=== PATIENT | male | born 1945 | race Caucasian/White ===

== ENCOUNTER 2016-11-06 08:41 | Emergency (ER) | payer MEDICARE ==
[2016-11-06 08:46] VITALS: BP 144/77; PULSE 73; RESP 20; TEMP 97.3
--- NOTE | 2016-11-06 09:21 | ED ---
Skin/Abscess/FB HPI - General Chief complaint: Skin/Abscess/Foreign Body Stated complaint: POSS SHINGLES Time Seen by Provider: 11/06/16 09:02 Source: patient, RN notes reviewed Mode of arrival: ambulatory Limitations: no limitations - History of Present Illness Initial comments: Patient is a 71-year-old male presents to the emergency room for evaluation of rash. Patient states he has shingles. Patient states she's had shingles before and this feels exactly the same. Patient states symptoms began about 3 weeks ago. Patient states he can't take the burning and the pain anymore. Patient has no fevers or chills. Patient denies chest pain or shortness of breath. Patient denies headache or dizziness. Patient denies using new detergents, body lotions. Patient denies coming in contact with any new plants or animals. Patient also states that he has had a chronic rash similar to this and is followed up with a shell press operator. 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 Patient states it has flared up within the past 3 weeks and that's why he thinks he has shingles. Patient states he's been placed on creams (unknown name ) with relief of symptoms. - Related Data Previous Rx's Medication Instructions Recorded Cephalexin [Keflex] 500 mg PO Q6HR 7 Days 11/06/16 Hydrocortisone 1% Lotion 1 applic TOPICAL TID 10 Days 11/06/16 Allergies Allergy/AdvReac Type Severity Reaction Status Date / Time No Known Allergies Allergy Verified 11/06/16 08:46 Review of Systems ROS Statement: Those systems with pertinent positive or pertinent negative responses have been documented in the HPI. ROS Other: All systems not noted in ROS Statement are negative. Past Medical History Past Medical History: Coronary Artery Disease (CAD) History of Any Multi-Drug Resistant Organisms: None Reported Past Surgical History: Heart Catheterization With Stent Past Psychological History: Depression Smoking Status: Current every day smoker Past Alcohol Use History: None Reported Past Drug Use History: None Reported General Exam - General Exam Comments Initial Comments: Sitting in exam room in no acute distress. Limitations: no limitations General appearance: alert, in no apparent distress Head exam: Present: atraumatic, normocephalic, normal inspection Eye exam: Present: normal appearance ENT exam: Present: normal exam Neck exam: Present: normal inspection Respiratory exam: Present: normal lung sounds bilaterally. Absent: respiratory distress Cardiovascular Exam: Present: regular rate, normal rhythm, normal heart sounds Extremities exam: Present: normal inspection Back exam: Present: normal inspection Neurological exam: Present: alert, oriented X3, CN II-XII intact, normal gait Psychiatric exam: Present: normal affect, normal mood Skin exam: Present: warm, dry, other (Multiple keratotic-appearing papules and crusted plaques over her chest and entire back) Course Vital Signs 11/06/16 08:44 Temperature 97.3 F L Pulse Rate 73 Respiratory 20 Rate Blood Pressure 144/77 O2 Sat by Pulse 98 Oximetry Medical Decision Making - Medical Decision Making Patient is a 71-year-old male presents emergency room for evaluation of rash. 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 Patient's rash does not appear to be shingles. Patient's rash is not one-sided. Patient's rash is all over center of chest and back. It appears that patient is having a flareup of Darier disease. Patient's had this for about 3 weeks. Patient also be placed on antibiotics for secondary infection from scratching. Advised patient to follow-up with his shell press operator on Tuesday. Patient states he understands everything that was discussed with him. Return parameters discussed. Case discussed with Dr. Knowles. Disposition Clinical Impression: Darier disease Disposition: HOME SELF-CARE Condition: Good Instructions: Acute Rash (ED) Additional Instructions: Take antibiotics as directed. Apply cream as directed. Please follow up with shell press operator on Tuesday. If any new symptom arises, symptoms worsen or fever develops, return to ER as soon as possible. Prescriptions: Cephalexin [Keflex] 500 mg PO Q6HR 7 Days Hydrocortisone 1% Lotion 1 applic TOPICAL TID 10 Days Referrals: Ayana Beverly MD [Primary Care Provider] - 1-2 days Darío Clayton MD [STAFF PHYSICIAN] - 1-2 days Time of Disposition: 09:42
[2016-11-06] MEDS ORDERED: methylPREDNISolone SOD SUCCI 125 MG/2 ML VIAL IM ONE (09:42)
== END 2016-11-06 10:06 | disposition home or self-care (01) ==
LOC: EC 08:41
DX: Q82.8 Other specified congenital malformations of skin (principal); I25.10 Atherosclerotic heart disease of native coronary artery without angina pectoris; Z95.5 Presence of coronary angioplasty implant and graft; F17.200 Nicotine dependence, unspecified, uncomplicated
CPT/HCPCS: 99282; 96372; J2930

== ENCOUNTER 2016-11-27 07:39 | Emergency (ER) | payer MEDICARE, OTHER ==
--- NOTE | 2016-11-27 08:18 | ED ---
General Adult HPI <Raman Montez - Last Filed: 11/27/16 10:21> - General Source: patient, RN notes reviewed Mode of arrival: ambulatory Limitations: no limitations <Nahid Alcantar - Last Filed: 11/27/16 10:52> - General Chief complaint: ENT Stated complaint: ear pain Time Seen by Provider: 11/27/16 07:59 - History of Present Illness Initial comments: 71-year-old male present emergency department to complaint left ear pain. Patient states it has been painful for last 1 week. Patient states that there is drainage, or from his left ear. Patient states that he has ruptured eardrum in which she was scheduled to have surgery last June but states that he had to cancel it and has been pushed back to December 07. Patient states that he recently noticed that it has become infected again and he is increase in pain. Patient denies any pain around his ear but states there is pain in his ear. Patient did admit to having surgery on his right mastoid in the past but never on the left. Patient denies headache, fever, neck stiffness. Patient does not take any current antibiotics are eardrops. (Nahid Alcantar) - Related Data Previous Rx's Medication Instructions Recorded Cephalexin [Keflex] 500 mg PO Q6HR 7 Days 11/06/16 Hydrocortisone 1% Lotion 1 applic TOPICAL TID 10 Days 11/06/16 Amoxicillin/Potassium Clav 1 tab PO Q12HR #20 tab 11/27/16 [Augmentin 875-125 Tablet] Hydrocodone/Acetaminophen [[place] 1 tab PO Q6HR PRN #15 tab 11/27/16 5-325] Ofloxacin 0.3% Ophth Soln [Ocuflox 10 drops LEFT EAR BID #1 bottle 11/27/16 Ophth Soln] methylPREDNISolone [Medrol Dose 4 mg PO DIRECTED #1 pack 11/27/16 Pack] Allergies Allergy/AdvReac Type Severity Reaction Status Date / Time Latex, Natural Rubber Allergy Rash/Hives Verified 11/27/16 07:42 Review of Systems ROS Other: All systems not noted in ROS Statement are negative. <Raman Montez - Last Filed: 11/27/16 10:21> ROS Other: All systems not noted in ROS Statement are negative. <Nahid Alcantar - Last Filed: 11/27/16 10:52> ROS Statement: Those systems with pertinent positive or pertinent negative responses have been documented in the HPI. Past Medical History Past Medical History: Coronary Artery Disease (CAD) History of Any Multi-Drug Resistant Organisms: None Reported Past Surgical History: Heart Catheterization With Stent Past Psychological History: Depression Smoking Status: Former smoker Past Alcohol Use History: None Reported Past Drug Use History: None Reported <Nahid Alcantar - Last Filed: 11/27/16 10:52> General Exam Limitations: no limitations General appearance: alert, in no apparent distress Head exam: Present: atraumatic, normocephalic, normal inspection Eye exam: Present: normal appearance, PERRL, EOMI. Absent: scleral icterus, conjunctival injection, periorbital swelling ENT exam: Present: normal oropharynx, mucous membranes moist, other (No tenderness of the mastoid on the left or right there is some skin changes, rash noted to the ear, face region states this is chronic). Absent: TM's normal bilaterally (Unable to fully visualize left TM secondary to swelling of the external auditory canal), normal external ear exam (Purulent drainage noted from left ear canal, there is moderate swelling noted) Neck exam: Present: normal inspection, full ROM. Absent: tenderness, meningismus, lymphadenopathy Respiratory exam: Present: normal lung sounds bilaterally. Absent: respiratory distress, wheezes, rales, rhonchi, stridor Cardiovascular Exam: Present: regular rate, normal rhythm, normal heart sounds. Absent: systolic murmur, diastolic murmur, rubs, gallop, clicks Skin exam: Present: warm, dry, intact, normal color. Absent: rash <Nahid Alcantar - Last Filed: 11/27/16 10:52> Course <Raman Montez - Last Filed: 11/27/16 10:21> <Nahid Alcantar - Last Filed: 11/27/16 10:52> Vital Signs 11/27/16 11/27/16 11/27/16 07:41 09:44 10:35 Temperature 97.5 F L Pulse Rate 74 57 L 54 L Respiratory 20 14 14 Rate Blood Pressure 139/75 145/71 142/74 O2 Sat by Pulse 98 99 98 Oximetry - Reevaluation(s) Reevaluation #1: 11/27/16 10:21 Patient was reevaluated by myself, Dr. Montez. Patient does have some mild swelling and tenderness in the posterior left mastoid region. Left TM difficult to visualize and does have some greenish discharge. Case was discussed in detail with Dr. Valdez, covering for Dr. Walter nash. She recommends outpatient treatment with Augmentin and steroid and return if symptoms worsen. Patient will be provided ENT follow-up. In addition patient does have history of Darier's disease and feels like his chest does have some burning with exacerbation of this. Patient will be provided pain medication. Patient may also benefit from antibiotics and steroid with this. (Raman Montez) Medical Decision Making - Lab Data Result diagrams: 11/27/16 09:45 <Raman Montez - Last Filed: 11/27/16 10:21> - Lab Data Result diagrams: 11/27/16 09:45 11/27/16 09:45 <Nahid Alcantar - Last Filed: 11/27/16 10:52> - Medical Decision Making Dr. Montez did discuss case with Dr. Valdez who does not accept admission at this time. Case was discussed in detail with her. She does recommend outpatient treatment with Augmentin, steroids and pain medication. Patient will be given eardrops in addition. Patient will be provided ENT follow-up with Dr. Calvillo he is to call Tuesday morning first thing. Return parameters were discussed (Nahid Alcantar) - Lab Data Lab Results 11/27/16 11/27/16 Range/Units 09:45 09:45 WBC 7.8 (3.8-10.6) k/uL RBC 5.18 (4.30-5.90) m/uL Hgb 15.1 (13.0-17.5) gm/dL Hct 46.4 (39.0-53.0) % MCV 89.7 (80.0-100.0) fL MCH 29.2 (25.0-35.0) pg MCHC 32.6 (31.0-37.0) g/dL RDW 12.4 (11.5-15.5) % Plt Count 562 H (150-450) k/uL Neutrophils % 76 % Lymphocytes % 13 % Monocytes % 6 % Eosinophils % 2 % Basophils % 1 % Neutrophils # 5.9 (1.3-7.7) k/uL Lymphocytes # 1.0 (1.0-4.8) k/uL Monocytes # 0.5 (0-1.0) k/uL Eosinophils # 0.2 (0-0.7) k/uL Basophils # 0.1 (0-0.2) k/uL Sodium 141 (137-145) mmol/L Potassium 4.5 (3.5-5.1) mmol/L Chloride 102 (98-107) mmol/L Carbon Dioxide 30 (22-30) mmol/L Anion Gap 9 mmol/L BUN 11 (9-20) mg/dL Creatinine 0.89 (0.66-1.25) mg/dL Est GFR (MDRD) Af Amer >60 (>60 ml/min/1.73 sqM) Est GFR (MDRD) Non-Af >60 (>60 ml/min/1.73 sqM) Glucose 94 (74-99) mg/dL Calcium 9.6 (8.4-10.2) mg/dL Total Bilirubin 0.8 (0.2-1.3) mg/dL AST 34 (17-59) U/L ALT 49 (21-72) U/L Alkaline Phosphatase 93 (38-126) U/L Total Protein 7.9 (6.3-8.2) g/dL Albumin 4.4 (3.5-5.0) g/dL Disposition <Raman Montez - Last Filed: 11/27/16 10:21> Time of Disposition: 10:52 <Nahid Alcantar - Last Filed: 11/27/16 10:52> Clinical Impression: Darier disease, Mastoiditis of left side Disposition: HOME SELF-CARE Condition: Stable Instructions: Mastoiditis (ED) Additional Instructions: Please return to the Emergency Department if symptoms worsen or any other concerns. Prescriptions: Amoxicillin/Potassium Clav [Augmentin 875-125 Tablet] 1 tab PO Q12HR #20 tab Hydrocodone/Acetaminophen [[place] 5-325] 1 tab PO Q6HR PRN #15 tab PRN Reason: Pain Ofloxacin 0.3% Ophth Soln [Ocuflox Ophth Soln] 10 drops LEFT EAR BID #1 bottle methylPREDNISolone [Medrol Dose Pack] 4 mg PO DIRECTED #1 pack Referrals: Ayana Beverly MD [Primary Care Provider] - 1-2 days Darrick Wyatt MD [STAFF PHYSICIAN] - 1-2 days
--- NOTE | 2016-11-27 08:44 | CT ---
EXAMINATION TYPE: CT mastoid wo con DATE OF EXAM: 11/27/2016 8:34 AM COMPARISON: NONE HISTORY: Lt ear pain CT DLP: 150 mGycm Automated exposure control for dose reduction was used. FINDINGS: There is fluid within left mastoid air cells. No septal destruction is evident. Correlate for acute l eft mastoiditis. This been a prior right mastoidectomy. External auditory canal thickening or debris is present. There is fluid within the middle ear. Incus and malleus are normal in the left. The incus and malleus are not identified on the right. Cochlea are normal. Semicircular canals are normal. The internal auditory canals are normal without expansion or erosion. Osseous structures appear intact. IMPRESSION: 1. CORRELATE FOR ACUTE LEFT MASTOIDITIS. 2. MIDDLE EAR INFECTION ON THE LEFT POSSIBLY EXTERNAL AUDITORY CANAL ON THE MAY BE PRESENT. 3. PRIOR RIGHT MASTOIDECTOMY.
[2016-11-27] MEDS ORDERED: MORPHINE SULFATE 4 MG/ML SYRINGE IVP STA (09:39)
[2016-11-27] MEDS ORDERED: IV VANCOMYCIN PER PHARMACY 1 EACH MISC MISCELLANE PRN (09:39)
[2016-11-27] MEDS ORDERED: ONDANSETRON 4 MG/2 ML VIAL IVP STA (09:39)
[2016-11-27] MEDS ORDERED: VANCOMYCIN 1,500 MG in SODIUM CHLORIDE 0.9% 250 ML IVPB ONE (10:00)
[2016-11-27 10:08] LABS: Basophils # (A) 0.1 k/uL (0-0.2); Basophils % (A) 1 %; CH 29.3; CHCM 32.7; Eosinophils # (A) 0.2 k/uL (0-0.7); Eosinophils % (A) 2 %; HCT 46.4 % (39.0-53.0); HDW 2.09; HGB 15.1 gm/dL (13.0-17.5); Luc # (Auto) 0.18; Luc % (Auto) 2; Lymphocytes % (A) 13 %; MCH 29.2 pg (25.0-35.0); MCHC 32.6 g/dL (31.0-37.0); MCV 89.7 fL (80.0-100.0); Mean Platelet Volume 6.5; Monocytes # (A) 0.5 k/uL (0-1.0); Monocytes % (A) 6 %; Neutrophils # (A) 5.9 k/uL (1.3-7.7); Neutrophils % (A) 76 %; RBC 5.18 m/uL (4.30-5.90); RDW 12.4 % (11.5-15.5); WBC 7.8 k/uL (3.8-10.6); WBC (Perox) 8.26
[2016-11-27 10:21] LABS: ALT 49 U/L (21-72); AST 34 U/L (17-59); Alkaline Phosphatase 93 U/L (38-126); Anion Gap 9 mmol/L; Blood Urea Nitrogen 11 mg/dL (9-20); Calcium 9.6 mg/dL (8.4-10.2); Carbon Dioxide 30 mmol/L (22-30); Chloride 102 mmol/L (98-107); Glucose 94 mg/dL (74-99); Non-African American GFR(MDRD) >60 (>60 ml/min/1.73 sqM); Potassium 4.5 mmol/L (3.5-5.1); Sodium 141 mmol/L (137-145); Total Bilirubin 0.8 mg/dL (0.2-1.3); Total Protein 7.9 g/dL (6.3-8.2)
[2016-11-27 12:38] VITALS: BP 140/82; PULSE 62; RESP 16
[2016-11-27 12:52] VITALS: TEMP 98.5
== END 2016-11-27 12:51 | disposition home or self-care (01) ==
LOC: EC 07:39
DX: H70.002 Acute mastoiditis without complications, left ear (principal); Q82.8 Other specified congenital malformations of skin; Z87.891 Personal history of nicotine dependence; Z95.5 Presence of coronary angioplasty implant and graft; Z91.040 Latex allergy status; Z79.52 Long term (current) use of systemic steroids
CPT/HCPCS: 99283; 96365; 96366; 96367; 36415; 80053; 85025; 87040; 87070; 87205; 87077; 87186; 70486; J3370; J0696

== ENCOUNTER → 2019-05-09 | Outpatient (CLI) | payer MEDICARE ==
--- NOTE | 2019-05-09 15:47 | US ---
EXAMINATION TYPE: US prostate transrectal DATE OF EXAM: 05/09/2019 COMPARISON: NONE CLINICAL HISTORY: N13.8 Benign prostatic hyperplasia with lower. BPH, frequent urination, weak slow u rine stream, elevated PSA This examination was performed using the transrectal probe. EXAM MEASUREMENTS: Gland Size: 4.1 x 2.3 x 4.3cm Volume: 21.3ml Predicted PSA: 2.56 Actual PSA (if available):not available at time of exam Heterogeneous gland with small 0.6 x 0.5 x 0.5cm complex cystic area left apex. Seminal vesicles are normal in size on initial images. Prostate gland measures within normal limits. Prostate gland is overall heterogeneous with thin septated cystic lesion in the left apex peripherall y. No suspicious hypoechoic nodules are identified. IMPRESSION: No suspicious nodules. Prostate gland measures normal in size. Predicted PSA = volume x 0.12 ng/ml Calculated Volume = 0.5236 x L x W x H
== END | disposition home or self-care (01) ==
LOC: RADUSWWP 14:54
PROVIDERS: ATTEND Family Medicine
DX: N13.8 Other obstructive and reflux uropathy (principal)
CPT/HCPCS: 76872

== ENCOUNTER 2019-07-13 16:46 | Emergency (ER) | payer MEDICARE ==
[2019-07-13 16:55] VITALS: TEMP 97.4
[2019-07-13] MEDS ORDERED: OFLOXACIN 0.3% OPHTH DROPS 5 ML BOTTLE BOTH EARS STA (18:04)
[2019-07-13] MEDS ORDERED: AMOXIC-POT CLAV 875MG STARTER 2 EACH TABLET PO STA (18:05)
--- NOTE | 2019-07-13 18:05 | ED ---
General Adult HPI - General Chief complaint: ENT Stated complaint: ear pain and discharge Time Seen by Provider: 07/13/19 17:00 Source: patient, RN notes reviewed Mode of arrival: ambulatory Limitations: no limitations - History of Present Illness Initial comments: 74-year-old male presents to the emergency department for a chief complaint of bilateral ear pain and drainage 5 days. States that it seems to be getting worse and worse so he decided to come to the ER. Denies fevers or chills. States the drainage seems purulent in nature. Denies any headache or pain behind the ear. Denies any neck pain or neck stiffness. States he is a history of mastoiditis but does not have any pain in that area at this time. States he has an appointment with ENT in 2 days.Patient has no other complaints at this time including shortness of breath, chest pain, abdominal pain, nausea or vomiting, headache, or visual changes. - Related Data Previous Rx's Medication Instructions Recorded Cephalexin [Keflex] 500 mg PO Q6HR 7 Days cap 11/06/16 Hydrocortisone 1% Lotion 1 applic TOPICAL TID 10 Days ml 11/06/16 Amoxicillin/Potassium Clav 1 tab PO Q12HR #20 tab 11/27/16 [Augmentin 875-125 Tablet] Hydrocodone/Acetaminophen [[place] 1 tab PO Q6HR PRN #15 tab 11/27/16 5-325] Ofloxacin 0.3% Ophth Soln [Ocuflox 10 drops LEFT EAR BID #1 bottle 11/27/16 Ophth Soln] methylPREDNISolone [Medrol Dose 4 mg PO DIRECTED #1 pack 11/27/16 Pack] Amoxicillin/Potassium Clav 1 tab PO Q12HR #20 tab 07/13/19 [Augmentin 875-125 Tablet] Ofloxacin 0.3% Ophth Soln [Ocuflox 10 drops BOTH EARS DAILY #1 bottle 07/13/19 Ophth Soln] Allergies Allergy/AdvReac Type Severity Reaction Status Date / Time Latex, Natural Rubber Allergy Rash/Hives Verified 07/13/19 16:55 Review of Systems ROS Statement: Those systems with pertinent positive or pertinent negative responses have been documented in the HPI. ROS Other: All systems not noted in ROS Statement are negative. Past Medical History Past Medical History: Coronary Artery Disease (CAD) History of Any Multi-Drug Resistant Organisms: None Reported Past Surgical History: Heart Catheterization With Stent Past Psychological History: Depression Smoking Status: Former smoker Past Alcohol Use History: None Reported Past Drug Use History: None Reported General Exam Limitations: no limitations General appearance: alert, in no apparent distress Head exam: Present: atraumatic, normocephalic, normal inspection Eye exam: Present: normal appearance, PERRL, EOMI. Absent: scleral icterus, conjunctival injection, periorbital swelling ENT exam: Present: normal exam, normal oropharynx, mucous membranes moist, other (Right tympanic membrane is erythematous, bulging. Right external auditory canal appears normal. Left tympanic membrane is not able to be visualized as he has edema of the left external auditory canal. I do not see any drainage from the ears at this time. No mastoid tenderness elicited with percussion of the mastoid.) Neck exam: Present: normal inspection, full ROM. Absent: tenderness, meningismus, lymphadenopathy Respiratory exam: Present: normal lung sounds bilaterally. Absent: respiratory distress, wheezes, rales, rhonchi, stridor Cardiovascular Exam: Present: regular rate, normal rhythm, normal heart sounds. Absent: systolic murmur, diastolic murmur, rubs, gallop, clicks Neurological exam: Present: alert Course Vital Signs 07/13/19 16:53 Temperature 97.4 F L Pulse Rate 84 Respiratory 20 Rate Blood Pressure 134/89 O2 Sat by Pulse 99 Oximetry Medical Decision Making - Medical Decision Making 74-year-old male presents to the emergency department for bilateral ear pain and drainage 5 days. Patient states he made an appointment with ENT for 2 days it felt like he should be evaluated today because it seemed to be getting worse. Denies any pain behind the ear or headache. No neck pain or stiffness. No fevers or chills. On exam patient has an erythematous and bulging right tympanic membrane within normal external auditory canal. Left external auditory canal is edematous and I'm not able to visualize the tympanic membrane. No pain to the mastoid with percussion or palpation. Vitals are stable. Ear wick was inserted into the left external auditory canal given edema and drops were applied. Patient was given a starter pack of Augmentin. Patient will follow up with ENT on Tuesday. He will return here for Any worsening symptoms over the weekend. I discussed this case with attending Dr. Lopez who agrees with this assessment and treatment plan. Disposition Clinical Impression: Otitis externa, Otitis media Disposition: HOME SELF-CARE Condition: Good Instructions (If sedation given, give patient instructions): Earache (ED), Otitis Externa (ED) Additional Instructions: Please use 10 drops per day in each ear. Take Augmentin as directed. Follow-up with your ENT on Tuesday. Return to the emergency department if you have worsening symptoms over the weekend. Prescriptions: Amoxicillin/Potassium Clav [Augmentin 875-125 Tablet] 1 tab PO Q12HR #20 tab Ofloxacin 0.3% Ophth Soln [Ocuflox Ophth Soln] 10 drops BOTH EARS DAILY #1 bottle Is patient prescribed a controlled substance at d/c from ED?: No Referrals: Mark Umaña MD [Primary Care Provider] - 1-2 days Quoc Paniagua DO [Doctor of Osteopathic Medicine] - 1-2 days Time of Disposition: 18:46
[2019-07-13 18:58] VITALS: BP 148/76; PULSE 60; RESP 16
== END 2019-07-13 18:52 | disposition home or self-care (01) ==
LOC: EC 16:46
DX: H66.93 Otitis media, unspecified, bilateral (principal); H60.93 Unspecified otitis externa, bilateral; I25.10 Atherosclerotic heart disease of native coronary artery without angina pectoris; Z91.040 Latex allergy status; Z91.048 Other nonmedicinal substance allergy status; Z87.891 Personal history of nicotine dependence; Z95.5 Presence of coronary angioplasty implant and graft
CPT/HCPCS: 99282

== ENCOUNTER 2019-08-04 18:55 | Emergency (ER) | payer MEDICARE ==
[2019-08-04] MEDS ORDERED: methylPREDNISolone SOD SUCCI 125 MG/2 ML VIAL IM ONE (19:39)
[2019-08-04] MEDS ORDERED: IPRATROPIUM-ALBUTEROL 3 ML NEB INHALATION STA (19:39)
--- NOTE | 2019-08-04 19:45 | ED ---
General Adult HPI - General Chief complaint: Upper Respiratory Infection Stated complaint: cough x 4 days Time Seen by Provider: 08/04/19 19:25 Source: patient, RN notes reviewed Mode of arrival: ambulatory Limitations: no limitations - History of Present Illness Initial comments: 74-year-old male with a past medical history of coronary artery disease resents to the emergency department for a chief complaint of cough. Patient states he is coughing and it is keeping him up at night. States that he feels like he has bronchitis. States it is productive and he is coughing up green phlegm. He denies any shortness of breath or chest pain. She only takes Zoloft. No immunocompromised state. No fevers or chills. Patient has no other complaints at this time including shortness of breath, chest pain, abdominal pain, nausea or vomiting, headache, or visual changes. - Related Data Previous Rx's Medication Instructions Recorded Cephalexin [Keflex] 500 mg PO Q6HR 7 Days cap 11/06/16 Hydrocortisone 1% Lotion 1 applic TOPICAL TID 10 Days ml 11/06/16 Amoxicillin/Potassium Clav 1 tab PO Q12HR #20 tab 11/27/16 [Augmentin 875-125 Tablet] Hydrocodone/Acetaminophen [[place] 1 tab PO Q6HR PRN #15 tab 11/27/16 5-325] Ofloxacin 0.3% Ophth Soln [Ocuflox 10 drops LEFT EAR BID #1 bottle 11/27/16 Ophth Soln] methylPREDNISolone [Medrol Dose 4 mg PO DIRECTED #1 pack 11/27/16 Pack] Amoxicillin/Potassium Clav 1 tab PO Q12HR #20 tab 07/13/19 [Augmentin 875-125 Tablet] Ofloxacin 0.3% Ophth Soln [Ocuflox 10 drops BOTH EARS DAILY #1 bottle 07/13/19 Ophth Soln] Albuterol Inhaler [Ventolin Hfa 1 - 2 puff INHALATION Q6HR PRN #1 08/04/19 Inhaler] inhaler Azithromycin [Zithromax Z-pack] 250 mg PO DIRECTED #6 tab 08/04/19 predniSONE 50 mg PO DAILY #5 tablet 08/04/19 Allergies Allergy/AdvReac Type Severity Reaction Status Date / Time Latex, Natural Rubber Allergy Rash/Hives Verified 08/04/19 19:21 Review of Systems ROS Statement: Those systems with pertinent positive or pertinent negative responses have been documented in the HPI. ROS Other: All systems not noted in ROS Statement are negative. Past Medical History Past Medical History: Coronary Artery Disease (CAD) History of Any Multi-Drug Resistant Organisms: None Reported Past Surgical History: Heart Catheterization With Stent Past Psychological History: Depression Smoking Status: Former smoker Past Alcohol Use History: None Reported Past Drug Use History: None Reported General Exam Limitations: no limitations General appearance: alert, in no apparent distress Head exam: Present: atraumatic, normocephalic, normal inspection Eye exam: Present: normal appearance, PERRL, EOMI. Absent: scleral icterus, conjunctival injection, periorbital swelling ENT exam: Present: normal exam, mucous membranes moist Neck exam: Present: normal inspection, full ROM. Absent: tenderness, meningismus, lymphadenopathy Respiratory exam: Present: wheezes (wheezing noted in lower lung terry.). Absent: respiratory distress, rales, rhonchi, stridor Cardiovascular Exam: Present: regular rate, normal rhythm, normal heart sounds. Absent: systolic murmur, diastolic murmur, rubs, gallop, clicks GI/Abdominal exam: Present: soft, normal bowel sounds. Absent: distended, tenderness, guarding, rebound, rigid Neurological exam: Present: alert Course Vital Signs 08/04/19 08/04/19 08/04/19 19:16 19:42 19:55 Temperature 99.3 F Pulse Rate 92 92 Respiratory 17 20 Rate Blood Pressure 119/80 O2 Sat by Pulse 97 Oximetry 08/04/19 19:59 Temperature Pulse Rate 96 Respiratory Rate Blood Pressure O2 Sat by Pulse Oximetry Medical Decision Making - Medical Decision Making Vitals are stable. Patient is 97% on room air. Afebrile. Wheezing is noted in lower lung terry. Denies chest pain or shortness of breath. Patient is noted to have a productive cough. X-ray shows no active cardiopulmonary disease. Patient likely has bronchitis. He was given breathing treatment and did have improvement in lung aeration. He was given an IM injection of steroids and antibiotics. Patient will be treated outpatient with inhaler, steroids, Z-Keith. He will follow up with primary care in 1-2 days. If he has worsening symptoms he does agree to return to the emergency department.I discussed this case with attending Dr. Mora who agrees with this assessment and treatment plan. Disposition Clinical Impression: Bronchitis Disposition: HOME SELF-CARE Condition: Good Instructions (If sedation given, give patient instructions): Acute Bronchitis (ED) Additional Instructions: Use inhaler as needed and directed. Please take steroid and antibiotic as directed starting tomorrow. These were prescribed to the [facility] in [place]. Please follow-up with primary care in 1-2 days. If you have any worsening symptoms return to the emergency department. Prescriptions: predniSONE 50 mg PO DAILY #5 tablet Albuterol Inhaler [Ventolin Hfa Inhaler] 1 - 2 puff INHALATION Q6HR PRN #1 inhaler PRN Reason: Shortness Of Breath Azithromycin [Zithromax Z-pack] 250 mg PO DIRECTED #6 tab Is patient prescribed a controlled substance at d/c from ED?: No Referrals: Mark Umaña MD [Primary Care Provider] - 1-2 days Time of Disposition: 21:44
--- NOTE | 2019-08-04 20:58 | XR ---
EXAMINATION TYPE: XR chest 2V DATE OF EXAM: 08/04/2019 COMPARISON: NONE HISTORY: Chest pain. Cough TECHNIQUE: Frontal and lateral views of the chest are obtained. FINDINGS: Heart and mediastinum are normal. Lungs are clear of infiltrate. There is no pleural effus ion. Bony thorax is intact. IMPRESSION: No active cardiopulmonary disease. Normal heart.
[2019-08-04] MEDS ORDERED: cefTRIAXone 1,000 MG VIAL (IM USE) IM STA (21:43)
[2019-08-04 22:17] VITALS: BP 124/78; PULSE 95; RESP 18; TEMP 99
== END 2019-08-04 22:16 | disposition home or self-care (01) ==
LOC: EC 18:55
DX: J40 Bronchitis, not specified as acute or chronic (principal); I25.10 Atherosclerotic heart disease of native coronary artery without angina pectoris; Z87.891 Personal history of nicotine dependence; Z91.040 Latex allergy status; Z95.5 Presence of coronary angioplasty implant and graft
CPT/HCPCS: 94640; 71046; 99283; 96372 ×2; J2930; J0696

== ENCOUNTER → 2019-11-28 | Outpatient (CLI) | payer MEDICARE ==
--- NOTE | 2019-11-28 17:08 | US ---
EXAMINATION TYPE: US groin LT DATE OF EXAM: 11/28/2019 COMPARISON: NONE CLINICAL HISTORY: K40.90 Left Inguinal Hernia. Left inguinal hernia repair 2 years ago and patient th inks it is back, red palpable small lump in left groin, painful, patient tried to squeeze it prior to exam 0.6 x0.6 x 0.3cm hypoechoic lesion noted at skin line. Probable small abscess seen. IMPRESSION: Small ill-defined hypoechoic collection in subcutaneous tissues with adjacent color flow . Differential diagnosis could include hematoma and abscess.
== END | disposition home or self-care (01) ==
LOC: RADUSMAIN 15:45
PROVIDERS: ATTEND Physician Assistant
DX: K40.90 Unilateral inguinal hernia, without obstruction or gangrene, not specified as recurrent (principal)

== ENCOUNTER → 2021-01-20 | Outpatient (CLI) | payer MEDICARE ==
[2021-01-20 12:50] LABS: African American GFR (CKD) >90 (>60 ml/min/1.73 sqM); Blood Urea Nitrogen 14 mg/dL (9-20); Non-African American GFR(CKD) 79 (>60 ml/min/1.73 sqM)
--- NOTE | 2021-01-20 13:38 | CT ---
The EXAMINATION TYPE: CT soft tissue neck w con DATE OF EXAM: 01/20/2021 COMPARISON: None HISTORY: Localized swelling, mass and lump, left side of neck CT DLP: 357.2 mGycm CONTRAST: CT scan of the neck is performed with IV Contrast, patient injected with 100 mL of Isovue 370. Contrast enhanced CT of the neck was performed from the skull base through the lung apices. AIRWAY: The supraglottic, glottic, and subglottic portions of the airway appear patent and free of mass. SALIVARY GLANDS: There is an atrophic right submandibular gland with calcification in the region of W gonsalo's duct measuring 1.3 cm. The left submandibular gland appears to be mildly hypertrophic and me asures 3.6 x 1.7 cm and is near the BB marker and this could reflect the palpated abnormality. There is otherwise tiny 4 mm lymph node at this site as well. The parotid glands are free of mass or inflam matory process. THYROID GLAND: No nodules or masses seen. LYMPH NODES: No adenopathy seen greater than 1cm. LUNG APICES: No nodule or mass is seen. OTHER: Vascular structures are patent. Severe degenerative change of the cervical spine. No abscess seen. IMPRESSION: There is an atrophic right submandibular gland with calcification in the region of [place]'s duct anuradha suring 1.3 cm. The left submandibular gland appears to be mildly hypertrophic and measures 3.6 x 1.7 cm and is near the BB marker and this could reflect the palpated abnormality.
== END | disposition home or self-care (01) ==
LOC: RADCTMAIN 11:26
PROVIDERS: ATTEND Otolaryngology
DX: K11.0 Atrophy of salivary gland (principal); K11.1 Hypertrophy of salivary gland
CPT/HCPCS: 82565; 84520; 70491; 36415; Q9967

== ENCOUNTER 2021-02-13 09:35 | Day surgery (SDC) | payer MEDICARE ==
[2021-02-11 09:12] VITALS: BMI 26.6
--- NOTE | 2021-02-13 01:59 | HP ---
HISTORY AND PHYSICAL CHIEF COMPLAINT: Perforation of the left tympanic membrane. HISTORY OF PRESENT ILLNESS: This patient is a pleasant 76-year-old male who was recently seen in my office for treatment of a draining left ear. The patient was placed on antibiotic ear drops, ofloxacin for approximately 2 weeks. He was recently seen back for followup and the ear was found to be dry. At that time, it was recommended that the patient undergo an insertion of a Kartush patch which would close the perforation and improve his hearing. This could be done under either IV sedation or general anesthesia. PAST MEDICAL HISTORY: Past medical history reveals that he has: ALLERGIES: TO LATEX. CURRENT MEDICATIONS: Include ibuprofen. REVIEW OF SYSTEMS: The review of systems is essentially positive only for musculoskeletal, which is positive for osteoarthritis. Otherwise, review of systems is noncontributory. PREVIOUS SURGERIES: Previous surgeries include a right tympanoplasty with mastoidectomy, tonsillectomy, adenoidectomy, herniorrhaphy, stents in his heart, cholecystectomy, appendectomy, hemorrhoidectomy, bilateral cataract surgery, and colonoscopy. PHYSICAL EXAMINATION: This patient is a pleasant 76-year-old male who was alert, cooperative and well- oriented to time and place. HEENT examination: Patient is normocephalic. Tympanic membrane on the right is unremarkable. Examination of left ear repair reveals that the patient has a central perforation encompassing approximately 10-15 percent of the left tympanic membrane. The left middle ear space is free of any infection or cholesteatoma. Pupils are equal, round, reactive to light and accommodation. Extraocular movements within normal limits. Intranasal examination reveals moderate to severe septal deviation with compensatory hypertrophy of inferior turbinates. Moderate amount of mucus on the mucous membranes draining down posterior pharynx. Examination of oropharynx, cranial nerves 2 through 12 and the remainder of the head and neck exam are within normal limits. Chest cardiovascular: Both lung terry are clear to percussion and auscultation. The patient is in regular sinus rhythm. S1, S2 are present without evidence of murmurs S3s or S4s. Peripheral pulses are bilaterally symmetrical. Abdomen: There is no evidence any masses, megaly or tenderness. Abdomen is soft. Skin is unremarkable. Musculoskeletal, neurological are within normal limits. Rectal examination: Rectal exam is deferred at this time because the patient has this done on a regular basis at his family physician's office. The remainder of physical exam is unremarkable. IMPRESSION: Perforation of the left tympanic membrane. PLAN: The patient is scheduled undergo insertion of a Kartush patch to the perforation of the left tympanic membrane under either IV sedation or general anesthesia via LMA possibly. Attention RNs in the pre-surgical area, I have not ordered any pre-surgical prophylactic antibiotics for this patient. If the pharmacy department sends any pre- surgical prophylactic antibiotics to the pre-surgical area for this patient, please cancel that order, return the medications to the pharmacy and make sure that the patient's account is credited appropriately. I have discussed the risks, benefits and alternative therapies for the above-mentioned procedure and for both sedation/analgesia as well as necessary blood product administration, if indicated, as they pertain to this patient. The patient has indicated his or her understanding and acceptance of the risks and procedures discussed. RONI / LIMA: [id number] /
[~2021-02-13 09:35] MED LIST: HYDROmorphone 0.5 MG/0.5 ML SYRINGE IVP PRN; LACTATED RINGERS 1,000 ML IV SCH; MIDAZOLAM 2 MG/2 ML VIAL IV PRN; Pre Op ABX Message 1 EACH MISC MISCELLANE ONE
[2021-02-13 10:19] VITALS: TEMP 97.2
[2021-02-13] MEDS ORDERED: ONDANSETRON 4 MG/2 ML VIAL ONE (10:43)
[2021-02-13] MEDS ORDERED: ONDANSETRON 4 MG/2 ML VIAL IVP ONE (10:47)
[2021-02-13] MEDS ORDERED: DEXAMETHASONE SOD PHOSPHATE 4 MG/ML 1 ML VIAL IV ONE (10:48)
[2021-02-13] MEDS ORDERED: KETAMINE 10 MG/ML 20 ML VIAL ONE (11:04)
[2021-02-13] MEDS ORDERED: LIDOCAINE 1% INJ 10MG/ML (20 ML MDV) ONE (11:04)
[2021-02-13] MEDS ORDERED: MIDAZOLAM 2 MG/2 ML VIAL ONE (11:04)
[2021-02-13] MEDS ORDERED: PROPOFOL 10 MG/ML 20 ML VIAL IV ONE (11:04)
[2021-02-13] MEDS ORDERED: fentaNYL (PF) 50 MCG/ML 2 ML AMP ONE (11:04)
[2021-02-13] MEDS ORDERED: OFLOXACIN 0.3% OPHTH DROPS 5 ML BOTTLE LEFT EAR ONE (11:24)
[2021-02-13 12:32] VITALS: BP 138/85; PULSE 61; RESP 20
--- NOTE | 2021-02-13 19:26 | OP ---
OPERATIVE REPORT DATE OF SURGERY: 02/13/2021 POSTOPERATIVE DIAGNOSIS: Perforation of the left tympanic membrane. POSTOPERATIVE DIAGNOSIS: Perforation of the left tympanic membrane. ANESTHESIA: IV sedation. OPERATIVE PROCEDURE: Insertion of a 5 mm Kartush patch to a perforation of the left tympanic membrane OPERATING SURGEON: Dr. Reece COMPLICATIONS: None. ESTIMATED BLOOD LOSS: Zero. OPERATIVE PROCEDURE DESCRIPTION: The patient was placed on the operating table in supine position. After uneventful IV sedation, satisfactory sedation was obtained. Next, the patient's left ear was draped in the usual and customary fashion. Following this, using the Zeiss operating microscope and a #3 aural speculum, the left external auditory canal was cleansed of all wax and debris. It is to be noted that the canal was quite stenotic. There did not appear to be any purulent material or cholesteatoma debris. The perforation was examined and the middle ear space was also found to be free of any cholesteatoma or infection. Next, the rim of the perforation was prepped in the usual and customary fashion. Following this, using a pair of alligator forceps, a 5 mm Kartush patch was inserted through the perforation without difficulty. Next, using various otological instruments, including a pic and a Gimmick, the patch was seated over the perforation in the proper fashion. Care was taken to make sure that the inner flap of the Kartush patch was medial to the tympanic membrane. The left external auditory canal was then filled with Floxin solution and the procedure was terminated. There were no intraoperative complications. The patient tolerated the procedure well and was returned to the recovery room in satisfactory condition. MMODL / IJN: [id number] /
== END 2021-02-13 12:50 | disposition home or self-care (01) ==
LOC: OR 09:35
PROVIDERS: ATTEND Otolaryngology
DX: H72.92 Unspecified perforation of tympanic membrane, left ear (principal); F41.9 Anxiety disorder, unspecified; Z95.5 Presence of coronary angioplasty implant and graft; Z98.890 Other specified postprocedural states; R21 Rash and other nonspecific skin eruption; Z97.2 Presence of dental prosthetic device (complete) (partial); Z79.1 Long term (current) use of non-steroidal anti-inflammatories (NSAID); Z91.018 Allergy to other foods; Z91.040 Latex allergy status; Z90.89 Acquired absence of other organs; Z90.49 Acquired absence of other specified parts of digestive tract; Z98.42 Cataract extraction status, left eye; Z98.41 Cataract extraction status, right eye
CPT/HCPCS: 69610; J2250; J1100; J2405; J2001; J3010; J2704

== ENCOUNTER → 2021-08-21 | Outpatient (CLI) | payer MEDICARE ==
--- NOTE | 2021-08-21 16:50 | CT ---
EXAMINATION TYPE: CT iac wo con DATE OF EXAM: 08/21/2021 COMPARISON: 11/27/2016 HISTORY: Sensorineural hearing loss, bilateral. Stenvers/Poschel views requested. CT DLP: 142.70mGycm Automated exposure control for dose reduction was used. FINDINGS: Findings compatible with prior right mastoidectomy. There is demineralization of the latera l margin of the bone similar to prior exam 2017. There is mild soft tissue density within the left mastoids air cells compatible with mild mastoiditis . Nasal septal deviation is seen. Visualized paranasal sinuses normal development and aeration. Internal auditory canal appears to be of normal caliber bilaterally. Semicircle canals are symmetric and normal in appearance. Scutum has a normal appearance of the left. There is been surgical resection noted on the right. 3 os sicles have a normal appearance on the left appear to be absent on the right correlate clinically. Nasopharynx is symmetric. Oropharynx symmetric. Orbits are symmetric. No cerebellopontine angle mass. IMPRESSION: 1. Post right mastoidectomy. 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 Correlate clinic ally. Residual soft tissue in the external auditory canal may be postsurgical. 2. Mild left mastoiditis.
== END | disposition home or self-care (01) ==
LOC: RADCTMAIN 15:41
PROVIDERS: ATTEND Otolaryngology
DX: H90.3 Sensorineural hearing loss, bilateral (principal)
CPT/HCPCS: 70480

== ENCOUNTER 2022-03-03 16:41 | Emergency (ER) | payer MEDICARE ==
[2022-03-03 17:12] VITALS: TEMP 97.6
--- NOTE | 2022-03-03 17:33 | XR ---
Result: Clinical History: Pain. Comparison: None available. Technique: 3 views of the left shoulder. Findings: The bone mineralization is appropriate for age. No acute fracture or dislocation is seen. There is moderate osteoarthritis of the acromioclavicular j oint. The visualized lung is clear. Impression: No acute osseous abnormality.
[2022-03-03] MEDS ORDERED: SODIUM CHLORIDE 0.9% 1,000 ML IV STA (20:54)
[2022-03-03] MEDS ORDERED: MORPHINE SULFATE 4 MG/ML SYRINGE IVP STA (20:54)
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
--- NOTE | 2022-03-03 21:47 | CT ---
EXAMINATION TYPE: CT brain cspine wo con DATE OF EXAM: 03/03/2022 COMPARISON: None available HISTORY: Head and neck pain/injury status post fall. CT DLP: 1408.5 mGycm Automated exposure control for dose reduction was used. TECHNIQUE: CT scan of the head and cervical spine are performed without contrast. FINDINGS: There is no acute intracranial hemorrhage, mass effect, or midline shift identified. The ventricles and sulci are within normal limits in size. The globes are intact and the visualized sin uses are clear. There is dysplastic appearance of the right mastoid air cells without acute abnormali ty. Cervical spine is visualized in its entirety from C1 through upper thoracic levels and demonstrates s atisfactory alignment without evidence of acute fracture or dislocation. Prevertebral soft tissue ap pears within normal limits. The C1-C2 articulation is unremarkable. There is mild to moderate cervi neeraj spondylosis. IMPRESSION: No acute intracranial or cervical spine abnormality.
[2022-03-03 22:13] LABS: Basophils # (A) 0.1 k/uL (0-0.2); Basophils % (A) 1 %; Eosinophils # (A) 0.3 k/uL (0-0.7); Eosinophils % (A) 3 %; HCT 41.7 % (39.0-53.0); HGB 13.2 gm/dL (13.0-17.5); Lymphocytes # (A) 1.4 k/uL (1.0-4.8); Lymphocytes % (A) 16 %; MCH 29.3 pg (25.0-35.0); MCHC 31.7 g/dL (31.0-37.0); MCV 92.4 fL (80.0-100.0); Mean Platelet Volume 6.8; Monocytes # (A) 0.6 k/uL (0-1.0); Monocytes % (A) 8 %; Neutrophils # (A) 5.9 k/uL (1.3-7.7); Neutrophils % (A) 71 %; Platelet Count 501 k/uL (150-450); RBC 4.51 m/uL (4.30-5.90); RDW 12.9 % (11.5-15.5); WBC 8.4 k/uL (3.8-10.6)
[2022-03-03 22:16] VITALS: RESP 16
[2022-03-03 22:32] LABS: ALT 27 U/L (4-49); AST 43 U/L (17-59); African American GFR (CKD) >90 (>60 ml/min/1.73 sqM); Albumin 4.2 g/dL (3.5-5.0); Alkaline Phosphatase 63 U/L (38-126); Anion Gap 6 mmol/L; Blood Urea Nitrogen 13 mg/dL (9-20); Calcium 8.8 mg/dL (8.4-10.2); Carbon Dioxide 28 mmol/L (22-30); Chloride 104 mmol/L (98-107); Glucose 88 mg/dL (74-99); Magnesium 2.1 mg/dL (1.6-2.3); Non-African American GFR(CKD) 83 (>60 ml/min/1.73 sqM); Potassium 4.4 mmol/L (3.5-5.1); Sodium 138 mmol/L (137-145); Total Bilirubin 0.5 mg/dL (0.2-1.3); Total Protein 7.3 g/dL (6.3-8.2)
[2022-03-03 23:56] VITALS: BP 130/72; PULSE 76
== END 2022-03-03 23:56 | disposition home or self-care (01) ==
LOC: EC 16:41
DX: M25.512 Pain in left shoulder (principal); R55 Syncope and collapse; Z91.040 Latex allergy status; Z91.018 Allergy to other foods; W01.0XXA Fall on same level from slipping, tripping and stumbling without subsequent striking against object, initial encounter; Y93.01 Activity, walking, marching and hiking
CPT/HCPCS: 36415; 93005; 80053; 83735; 85025; 73030; 72125; 70450; 99284; 96374; 96361; J2270

== ENCOUNTER 2023-08-08 09:43 | Emergency (ER) | payer MEDICARE ==
--- NOTE | 2023-08-08 10:32 | ED ---
General Adult HPI - General Chief complaint: Recheck/Abnormal Lab/Rx Stated complaint: Fever Source: patient Mode of arrival: ambulatory Limitations: no limitations - History of Present Illness Initial comments: 78 year Old male with past medical history significant for coronary artery disease status post stenting presents to the ED with a chief complaint of COVID testing. Patient states 3 days ago exposure to a friend. States she ended up having to go to the hospital yesterday due to COVID. States over the past 2 days has had fatigue, congestion, and rhinorrhea and is concerned he might have COVID. Denies fever, cough, chest pain, shortness of breath. Not on any daily medications. No other complaints. - Related Data Home Medications Medication Instructions Recorded Confirmed Sertraline [Zoloft] 25 mg PO DAILY 02/11/21 03/03/22 Clobetasol Propionate [Temovate 1 applic TOPICAL DAILY PRN 03/03/22 03/03/22 0.05% Cream] Triamcinolone 0.1% Ointment 1 applic TOPICAL BID PRN 03/03/22 03/03/22 [Kenalog 0.1% Ointment] Previous Rx's Medication Instructions Recorded Nirmatrelvir/Ritonavir [Paxlovid See Rx Instructions .ROUTE 08/08/23 2X150 mg-100 mg (Eua)] .COMPLEX #30 tab Allergies Allergy/AdvReac Type Severity Reaction Status Date / Time Latex, Natural Rubber Allergy Rash/Hives Verified 08/08/23 10:18 orange juice Allergy Rash/Hives Verified 08/08/23 10:18 Review of Systems ROS Statement: Those systems with pertinent positive or pertinent negative responses have been documented in the HPI. ROS Other: All systems not noted in ROS Statement are negative. Past Medical History Past Medical History: Coronary Artery Disease (CAD) History of Any Multi-Drug Resistant Organisms: None Reported Past Surgical History: Heart Catheterization With Stent Past Anesthesia/Blood Transfusion Reactions: No Reported Reaction Date of Last Stent Placement:: 2000 Past Psychological History: Anxiety Smoking Status: Never smoker Past Alcohol Use History: None Reported Past Drug Use History: None Reported - Past Family History Brother(s) Family Medical History: Cancer Additional Family Medical History / Comment(s): lung General Exam Limitations: no limitations General appearance: alert, in no apparent distress Eye exam: Present: normal appearance Neck exam: Present: normal inspection Respiratory exam: Present: normal lung sounds bilaterally Cardiovascular Exam: Present: regular rate, normal rhythm GI/Abdominal exam: Present: soft Neurological exam: Present: alert, oriented X3 Skin exam: Present: warm, dry Course Vital Signs 08/08/23 10:16 Temperature 98.7 F Pulse Rate 61 Respiratory 20 Rate Blood Pressure 154/79 O2 Sat by Pulse 99 Oximetry Medical Decision Making - Medical Decision Making Was pt. sent in by a medical professional or institution (, PA, [employer], urgent care, hospital, or half-way...) When possible be specific @ -No Did you speak to anyone other than the patient for history (EMS, parent, family, police, friend...)? What history was obtained from this source @ -No Did you review nursing and triage notes (agree or disagree)? Why? @ -I reviewed and agree with nursing and triage notes Were old charts reviewed (outside hosp., previous admission, EMS record, old EKG, old radiological studies, urgent care reports/EKG's, half-way records)? Report findings @ -No old charts were reviewed Differential Diagnosis (chest pain, altered mental status, abdominal pain women, abdominal pain men, vaginal bleeding, weakness, fever, dyspnea, syncope, headache, dizziness, GI bleed, back pain, seizure, CVA, palpatations, mental health, musculoskeletal)? @ -Differential Dyspnea: Coronary syndrome, arrhythmia, tamponade, asthma, COPD, pulmonary embolism, pneumonia, pneumothorax, pulmonary effusion, anaphylaxis, diabetic ketoacidosis, flailed chest, pulmonary contusion, diaphragmatic rupture, anemia, neuromuscular, this is not meant to be an all-inclusive list. EKG interpreted by me (3pts min.). @ -None X-rays interpreted by me (1pt min.). @ -None done CT interpreted by me (1pt min.). @ -None done U/S interpreted by me (1pt. min.). @ -None done What testing was considered but not performed or refused? (CT, X-rays, U/S, labs)? Why? @ -None What meds were considered but not given or refused? Why? @ -None Did you discuss the management of the patient with other professionals (professionals i.e. , PA, [employer], lab, RT, psych nurse, social welfare clerk, grain trimmer, teacher, emergency response officer, rehabilitation case coordinator)? Give summary @ -No Was smoking cessation discussed for >3mins.? @ -No Was critical care preformed (if so, how long)? @ -No Were there social determinants of health that impacted care today? How? (Homelessness, low income, unemployed, alcoholism, drug addiction, transportation, low edu. Level, literacy, decrease access to med. care, group home, rehab)? @ -No Was there de-escalation of care discussed even if they declined (Discuss DNR or withdrawal of care, Hospice)? DNR status @ -No What co-morbidities impacted this encounter? (DM, HTN, Smoking, COPD, CAD, Cancer, CVA, ARF, Chemo, Hep., AIDS, mental health diagnosis, sleep apnea, morbid obesity)? @ -CAD s/p stenting Was patient admitted / discharged? Hospital course, mention meds given and route, prescriptions, significant lab abnormalities, going to OR and other pertinent info. @ -Discharge 78-year-old male with past medical history significant for coronary artery disease status post stenting presenting today with concerns that he might have caught COVID due to recent positive exposure and symptoms of rhinorrhea, congestion, and fatigue. Cephid positive for COVID. At this time, patient is not having any shortness of breath or dyspnea. Additionally, vital signs stable. Lungs clear on exam for pneumonia. at this time, patient stable for discharge. provided prescription for Paxlovid. Advised supportive care. Discussed return precautions with patient who verbalizes agreement. Undiagnosed new problem with uncertain prognosis? @ -No Drug Therapy requiring intensive monitoring for toxicity (Heparin, Nitro, Insulin, Cardizem)? @ -No Were any procedures done? @ -No Diagnosis/symptom? @ -COVID Acute, or Chronic, or Acute on Chronic? @ -Acute Uncomplicated (without systemic symptoms) or Complicated (systemic symptoms)? @ -Uncomplicated Side effects of treatment? @ -No Exacerbation, Progression, or Severe Exacerbation? @ -No Poses a threat to life or bodily function? How? (Chest pain, USA, CT, pneumonia, PE, COPD, DKA, ARF, appy, cholecystitis, CVA, Diverticulitis, Homicidal, Suicidal, threat to staff... and all critical care pts) @ -No - Lab Data Lab Results 08/08/23 Range/Units 10:29 Influenza Type A (PCR) Not Detected (Not Detectd) Influenza Type B (PCR) Not Detected (Not Detectd) RSV (PCR) Not Detected (Not Detectd) SARS-CoV-2 (PCR) Detected A (Not Detectd) Disposition Clinical Impression: COVID-19, Contact with and (suspected) exposure to covid-19 Disposition: HOME SELF-CARE Condition: Good Additional Instructions: Please return to the Emergency Department if symptoms worsen or any other concerns. Prescriptions: Nirmatrelvir/Ritonavir [Paxlovid 2X150 mg-100 mg (Eua)] See Rx Instructions .ROUTE .COMPLEX #30 tab Is patient prescribed a controlled substance at d/c from ED?: No Referrals: Mark Umaña MD [Primary Care Provider] - 1-2 days Time of Disposition: 11:29
[2023-08-08 12:02] VITALS: BP 146/78; PULSE 56; RESP 16; TEMP 98.8
== END 2023-08-08 12:05 | disposition home or self-care (01) ==
LOC: EC 09:43
DX: U07.1 COVID-19 (principal); I25.10 Atherosclerotic heart disease of native coronary artery without angina pectoris; F41.9 Anxiety disorder, unspecified; Z91.040 Latex allergy status; Z91.018 Allergy to other foods; Z79.899 Other long term (current) drug therapy
CPT/HCPCS: 87636; 99283

== ENCOUNTER 2024-04-17 14:55 | Emergency (ER) | payer MEDICARE ==
--- NOTE | 2024-04-17 15:46 | ED ---
Fall HPI - General Chief Complaint: Fall Stated Complaint: fall Time Seen by Provider: 04/17/24 15:21 Source: patient, RN notes reviewed, old records reviewed Mode of arrival: ambulatory Limitations: no limitations - History of Present Illness Initial Comments: This is a 79 male to the ED patient presents today after a fall fall for a few steps landing on his left side left chest wall complaining left-sided chest pain back pain, fall occurred just prior to arrival no other injury did not hit his head no loss of conscious no head or neck pain no syncopal event no headache chest pain shortness of breath abdominal pain patient is been feeling well lately with no nausea vomiting diarrhea no change of medications no drugs or alcohol MD Complaint: fall -: hour(s) Fall From: standing 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: yes, by family Place Fall Occurred: home Loss of Consciousness: none Prolonged Down Time?: no Symptoms Prior to Fall: none Severity: severe Severity scale (1-10): 7 Quality: sharp Context: tripped/slipped Associated Symptoms: denies - Related Data Home Medications Medication Instructions Recorded Confirmed ISOtretinoin [Isotretinoin] 20 mg PO DAILY PRN 04/17/24 04/17/24 Allergies Allergy/AdvReac Type Severity Reaction Status Date / Time Latex, Natural Rubber Allergy Rash/Hives Verified 04/17/24 16:06 orange juice Allergy Rash/Hives Verified 04/17/24 16:06 Review of Systems ROS Statement: Those systems with pertinent positive or pertinent negative responses have been documented in the HPI. ROS Other: All systems not noted in ROS Statement are negative. Past Medical History Past Medical History: Coronary Artery Disease (CAD) History of Any Multi-Drug Resistant Organisms: None Reported Past Surgical History: Heart Catheterization With Stent Past Anesthesia/Blood Transfusion Reactions: No Reported Reaction Date of Last Stent Placement:: 2000 Past Psychological History: Anxiety Smoking Status: Never smoker Past Alcohol Use History: None Reported Past Drug Use History: None Reported - Past Family History Brother(s) Family Medical History: Cancer Additional Family Medical History / Comment(s): lung General Exam Limitations: no limitations General appearance: alert, in no apparent distress Head exam: Present: atraumatic, normocephalic, normal inspection Eye exam: Present: normal appearance, PERRL, EOMI. Absent: scleral icterus, conjunctival injection, periorbital swelling ENT exam: Present: normal exam, mucous membranes moist Neck exam: Present: normal inspection. Absent: tenderness, meningismus, lymphadenopathy Respiratory exam: Present: normal lung sounds bilaterally. Absent: respiratory distress, wheezes, rales, rhonchi, stridor Cardiovascular Exam: Present: regular rate, normal rhythm, normal heart sounds. Absent: systolic murmur, diastolic murmur, rubs, gallop, clicks GI/Abdominal exam: Present: soft, normal bowel sounds. Absent: distended, tenderness, guarding, rebound, rigid Extremities exam: Present: normal inspection, full ROM, normal capillary refill. Absent: tenderness, pedal edema, joint swelling, calf tenderness Back exam: Present: normal inspection Neurological exam: Present: alert, oriented X3, CN II-XII intact Psychiatric exam: Present: normal affect, normal mood Skin exam: Present: warm, dry, intact, normal color. Absent: rash Course Vital Signs 04/17/24 04/17/24 14:57 18:01 Temperature 97.7 F 98.7 F Pulse Rate 62 67 Respiratory 18 16 Rate Blood Pressure 167/80 162/71 O2 Sat by Pulse 98 97 Oximetry - Reevaluation(s) Reevaluation #1: 04/17/24 15:53 Medical records reviewed Reevaluation #2: 04/17/24 15:53 Patient symptoms unchanged Reevaluation #3: Patient informed of results questions answered Reevaluation #4: Was pt. sent in by a medical professional or institution (, PA, ARCHAEOLOGY PROFESSOR, urgent care, hospital, or correction...) When possible be specific @ -no Did you speak to anyone other than the patient for history (EMS, parent, family, police, friend...)? What history was obtained from this source @ -no Did you review nursing and triage notes (agree or disagree)? Why? @ -agree Are old charts reviewed (outside hosp., previous admission, EMS record, old EKG, old radiological studies, urgent care reports/EKG's, correction records)? Report findings @ -yes Differential Diagnosis (chest pain, altered mental status, abdominal pain women, abdominal pain men, vaginal bleeding, weakness, fever, dyspnea, syncope, headache, dizziness, GI bleed, back pain, seizure, CVA, palpatations, mental health, musculoskeletal)? @ -prior EKG interpreted by me (3pts min.). @ -no X-rays interpreted by me (1pt min.). @ -yes positive for multiple rib fractures CT interpreted by me (1pt min.). @ -no U/S interpreted by me (1pt. min.). @ -no What testing was considered but not performed or refused? (CT, X-rays, U/S, labs)? Why? @ -none What meds were considered but not given or refused? Why? @ -none Did you discuss the management of the patient with other professionals (pro fessionals i.e. , PA, ARCHAEOLOGY PROFESSOR, lab, RT, psych nurse, oncology social worker, industrial machine operator, teacher, sewage reticulation drafting officer, medical case manager)? Give summary @ -no Was smoking cessation discussed for >3mins.? @ -no Was critical care preformed (if so, how long)? @ -no Were there social determinants of health that impacted care today? How? (Homelessness, low income, unemployed, alcoholism, drug addiction, transportation, low edu. Level, literacy, decrease access to med. care, intermediate, rehab)? @ -none Was there de-escalation of care discussed even if they declined (Discuss DNR or withdrawal of care, Hospice)? DNR status @ -no What co-morbidities impacted this encounter? (DM, HTN, Smoking, COPD, CAD, Cancer, CVA, ARF, Chemo, Hep., AIDS, mental health diagnosis, sleep apnea, morbid obesity)? @ -none Was patient admitted / discharged? Hospital course, mention meds given and route, prescriptions, significant lab abnormalities, going to OR and other pertinent info. @ - 79 male to ER after a fall with multiple rib fractures. Patient has no other traumatic injury, patient symptoms are improved here in the ER he prefers discharge home Discharge Undiagnosed new problem with uncertain prognosis? @ -no Drug Therapy requiring intensive monitoring for toxicity (Heparin, Nitro, Insulin, Cardizem)? @ -no Were any procedures done? @ -no Diagnosis/symptom? @ -Fall with rib fractures Acute, or Chronic, or Acute on Chronic? @ -Acute Uncomplicated (without systemic symptoms) or Complicated (systemic symptoms)? @ -Complicated Side effects of treatment? @ -no Exacerbation, Progression, or Severe Exacerbation? @ -exacerbation Poses a threat to life or bodily function? How? (Chest pain, [place], [place], pneumonia, PE, COPD, DKA, ARF, appy, cholecystitis, CVA, Diverticulitis, Homicidal, Suicidal, threat to staff... and all critical care pts) @ -yes significant falls and rib fracture Medical Decision Making - Medical Decision Making 79 male to ER after a fall with multiple rib fractures. Patient has no other traumatic injury, patient symptoms are improved here in the ER he prefers discharge home - Lab Data Lab Results 04/17/24 Range/Units 16:16 Urine Color Colorless Urine Appearance Clear (Clear) Urine pH 6.0 (5.0-8.0) Ur Specific [place] 1.004 (1.001-1.035) Urine Protein Negative (Negative) Urine Glucose (UA) Negative (Negative) Urine Ketones Negative (Negative) Urine Blood Negative (Negative) Urine Nitrite Negative (Negative) Urine Bilirubin Negative (Negative) Urine Urobilinogen <2.0 (<2.0) mg/dL Ur Leukocyte Esterase Negative (Negative) - Radiology Data Radiology results: report reviewed (X-ray chest with ribs positive rib fracture multiple), image reviewed Disposition Clinical Impression: Fall, Left rib fracture, Multiple rib fractures Disposition: HOME SELF-CARE Condition: Good Instructions (If sedation given, give patient instructions): Rib Fracture (ED) Is patient prescribed a controlled substance at d/c from ED?: No Referrals: Mark Umaña MD [Primary Care Provider] - 1-2 days Time of Disposition: 17:50
[2024-04-17] MEDS: ACETAMINOPHEN TAB 500 MG TAB PO STA (16:18)
[2024-04-17] MEDS: traMADol 50 MG TAB PO STA (16:19)
[2024-04-17] MEDS: IBUPROFEN 800 MG TAB PO STA (16:20)
[2024-04-17 16:45] LABS: Appearance,Urine Clear (Clear); Bilirubin,Urine Negative (Negative); Blood,Urine Negative (Negative); Color,Urine Colorless; Glucose,Urine (UA) Negative (Negative); Ketones,Urine Negative (Negative); Leukocyte Esterase,Urine Negative (Negative); Nitrite,Urine Negative (Negative); Protein,Urine Negative (Negative); Specific Gravity,Urine 1.004 (1.001-1.035); Urobilinogen,Urine <2.0 mg/dL (<2.0)
--- NOTE | 2024-04-17 17:28 | XR ---
EXAMINATION TYPE: XR ribs LT w pa chest xray, 5 views DATE OF EXAM: 04/17/2024 Comparison: Chest 08/04/2019 Clinical History: 79-year-old male left-sided rib pain, fall Findings: Heart borderline in size. Aorta and pulmonary vasculature within normal limits. Hyperinflation. No co nsolidation, pneumothorax, or pleural effusion. There are minimal offset fractures of the left anterolateral seventh, eighth, ninth, and 10th ribs. Impression: 1. Minimally offset fractures of the left anterolateral seventh, eighth, ninth, and 10th ribs. 2. Borderline heart size and COPD. Otherwise, no acute cardiopulmonary process.
[2024-04-17 18:03] VITALS: BP 162/71; PULSE 67; RESP 16; TEMP 98.7
[2024-04-17] MEDS: IBUPROFEN 600 MG STARTER PACK 4 TAB BTL PO STA (18:06)
[2024-04-17] MEDS: traMADol 50 MG STARTER PACK 3 TAB BTL PO STA (18:07)
[2024-04-17] MEDS: ACET/COD 300 MG/30 MG STARTER PACK 6 TAB BTL PO STA (18:08)
== END 2024-04-17 18:09 | disposition home or self-care (01) ==
LOC: EC 14:55
DX: S22.42XA Multiple fractures of ribs, left side, initial encounter for closed fracture (principal); Z91.040 Latex allergy status; Z91.018 Allergy to other foods; W10.9XXA Fall (on) (from) unspecified stairs and steps, initial encounter
CPT/HCPCS: 81003; 99285

== ENCOUNTER → 2024-05-04 | Outpatient (CLI) | payer MEDICARE ==
--- NOTE | 2024-05-04 15:42 | CT ---
EXAMINATION TYPE: CT shoulder LT wo con DATE OF EXAM: 05/04/2024 COMPARISON: None HISTORY: Fell 30 feet off of a ladder. CT DLP: [address] of the left shoulder with reconstruction imaging. TECHNIQUE: Unenhanced CT of the left shoulder was performed with bone and soft tissue window settings submitted in the axial coronal and sagittal planes. At a separate workstation 3-D TR imaging was ob tained. FINDINGS: I do not see evidence for fracture or dislocation. Severe narrowing of the subacromial spac e may reflect rotator cuff injury. No evidence for bony remodeling at this time. Moderate AC joint ar thropathy with mild spurring and a vacuum changes seen. Mild spur formation involving the greater hu meral tuberosity. Glenohumeral joint space is well-preserved. No obvious rotator cuff abnormality s een on CT. MRI is much more sensitive and specific to rotator cuff pathology. No soft tissue masses appreciated. Visualized portions of the right lung demonstrate right apical scarring. IMPRESSION: 1. I do not see evidence for fracture or dislocation. Severe narrowing of the subacromial space may r eflect rotator cuff injury. No evidence for bony remodeling at this time.
== END | disposition home or self-care (01) ==
LOC: RADCTMAIN 14:47
PROVIDERS: ATTEND Orthopaedic Surgery
DX: M75.102 Unspecified rotator cuff tear or rupture of left shoulder, not specified as traumatic (principal)

== ENCOUNTER → 2024-05-17 | Outpatient (CLI) | payer MEDICARE ==
[2024-05-17 16:13] LABS: Basophils # (A) 0.09 X 10*3/uL (0.00-0.10); Basophils % (A) 1.4 %; Eosinophils # (A) 0.54 X 10*3/uL (0.04-0.35); Eosinophils % (A) 8.5 %; HCT 45.3 % (39.6-50.0); HGB 14.4 g/dL (13.0-17.0); Lymphocytes # (A) 1.35 X 10*3/uL (0.90-5.00); Lymphocytes % (A) 21.4 %; MCH 29.4 pg (27.0-32.0); MCHC 31.8 g/dL (32.0-37.0); MCV 92.6 FL (80.0-97.0); Mean Platelet Volume 9.8 FL (9.5-12.2); Monocytes # (A) 0.67 X 10*3/uL (0.20-1.00); Monocytes % (A) 10.6 %; NRBC Per 100 WBC 0 X 10*3/uL (0.00-0.01); Neutrophils # (A) 3.66 X 10*3/uL (1.80-7.70); Neutrophils % (A) 57.9 %; Platelet Count 443 X 10*3/uL (140-440); RBC 4.89 X 10*6/uL (4.40-5.60); RDW 13.1 % (11.5-14.5); WBC 6.32 X 10*3/uL (4.50-10.00)
== END | disposition home or self-care (01) ==
LOC: LABWHC1 08:21
PROVIDERS: ATTEND Dermatology MOHS-Micrographic Surgery
DX: Q82.8 Other specified congenital malformations of skin (principal); Z79.899 Other long term (current) drug therapy
CPT/HCPCS: 36415; 82465; 84450; 84460; 84478; 85025

== ENCOUNTER 2024-07-18 09:16 | Day surgery (SDC) | payer MEDICARE ==
[2024-07-18 10:00] VITALS: TEMP 97.8
[2024-07-18] MEDS: LACTATED RINGERS 1,000 ML IV SCH (10:10)
[2024-07-18] MEDS: IV FLUID CONTINUATION 1,000 ML IV ONE (10:10)
[2024-07-18] MEDS ORDERED: PROPOFOL 10 MG/ML 20 ML VIAL IV ONE (10:51)
[2024-07-18] MEDS ORDERED: LIDOCAINE 1% INJ 10MG/ML (20 ML MDV) ONE (10:51)
--- NOTE | 2024-07-18 11:08 | P.PCN ---
Date of Procedure: 07/18/24 Procedure(s) Performed: BRIEF HISTORY: Patient is a 79-year-old, pleasant, white male scheduled of for an upper endoscopy as a part evaluation of intermittent dysphagia to solids for the last 6 months duration PROCEDURE PERFORMED: Esophagogastroduodenoscopy with balloon dilation. PREOPERATIVE DIAGNOSIS: Intermittent dysphagia to solids. IV sedation per anesthesia. PROCEDURE: After informed consent was obtained, the patient was brought into the endoscopy unit. IV sedation was administered by Anesthesia under continuous monitoring. Initially the Olympus GIF-140 video endoscope was inserted into the mouth. Esophagus intubated without any difficulty. It was gradually advanced into the stomach and duodenum and carefully examined. The bulb and the second part of the duodenum appeared normal. The scope at this time was withdrawn to the stomach, adequately insufflated with air, and upon careful examination, mucosa of the antrum, body, cardia and the fundus appeared normal. The scope was then withdrawn into the esophagus. Small hiatal hernia noted. The GE junction was located at 39 cm from the incisors. There was a benign-appearing distal esophageal stricture identified which was dilated with 15 mm TTS balloon for 30 seconds. There was a superficial mucosal tear noted and hence further dilation was not performed. The rest of the esophagus appeared normal. There were no erosions or ulcerations seen and the patient tolerated the procedure well. IMPRESSION: 1. Benign-appearing distal esophageal stricture status post balloon dilation using 15 mm TTS balloon. 2. Small hiatal hernia. RECOMMENDATIONS: The findings of this examination were discussed with the patient as well as his family. He was advised to be on a clear liquid diet for 2 hours. Follow-up in the office in 3 months..
[2024-07-18 11:26] VITALS: RESP 16
[2024-07-18 11:30] VITALS: BP 158/93; PULSE 57
== END 2024-07-18 12:08 | disposition home or self-care (01) ==
LOC: ORWHC2ENDO 09:16
PROVIDERS: ATTEND Internal Medicine Gastroenterology
DX: R13.19 Other dysphagia
CPT/HCPCS: 43249

== ENCOUNTER → 2025-01-07 | Outpatient (CLI) | payer MEDICARE ==
[2025-01-07 16:36] LABS: Basophils # (A) 0.09 X 10*3/uL (0.00-0.10); Basophils % (A) 1.4 %; Eosinophils # (A) 0.24 X 10*3/uL (0.04-0.35); Eosinophils % (A) 3.8 %; HCT 45.6 % (39.6-50.0); HGB 14.3 g/dL (13.0-17.0); Lymphocytes # (A) 1.17 X 10*3/uL (0.90-5.00); Lymphocytes % (A) 18.8 %; MCH 29.1 pg (27.0-32.0); MCHC 31.4 g/dL (32.0-37.0); MCV 92.7 FL (80.0-97.0); Mean Platelet Volume 9.1 FL (9.5-12.2); Monocytes # (A) 0.66 X 10*3/uL (0.20-1.00); Monocytes % (A) 10.6 %; NRBC Per 100 WBC 0 X 10*3/uL (0.00-0.01); Neutrophils # (A) 4.05 X 10*3/uL (1.80-7.70); Neutrophils % (A) 64.9 %; Platelet Count 479 X 10*3/uL (140-440); RBC 4.92 X 10*6/uL (4.40-5.60); RDW 13.5 % (11.5-14.5); WBC 6.24 X 10*3/uL (4.50-10.00)
[2025-01-07 16:42] LABS: ALT 31 U/L (10-49); AST 33 U/L (14-35); Albumin 4.2 g/dL (3.8-4.9); Alkaline Phosphatase 77 U/L (41-126); BUN/Creat Ratio 13.78 Ratio (12.00-20.00); Blood Urea Nitrogen 12.4 mg/dL (9.0-27.0); Calcium 9.5 mg/dL (8.7-10.3); Carbon Dioxide 27.9 mmol/L (21.6-31.8); Chloride 103 mmol/L (96-109); Chol/HDL Ratio 5.15 Ratio; Glucose 88 mg/dL (70-110); LDL Cholesterol,Calculated 182.1 mg/dL (0.0-131.0); Potassium 4.9 mmol/L (3.5-5.5); Sodium 140 mmol/L (135-145); Total Bilirubin 0.4 mg/dL (0.3-1.2); Total Protein 7.2 g/dL (6.2-8.2)
== END | disposition home or self-care (01) ==
LOC: LABWHC1 10:30
PROVIDERS: ATTEND Dermatology MOHS-Micrographic Surgery
DX: Q82.8 Other specified congenital malformations of skin (principal); Z79.899 Other long term (current) drug therapy
CPT/HCPCS: 36415; 80053; 80061; 85025

== ENCOUNTER → 2025-02-15 | Outpatient (CLI) | payer MEDICARE ==
--- NOTE | 2025-02-15 15:37 | FL ---
EXAMINATION TYPE: FL barium swallow DATE OF EXAM: 02/15/2025 COMPARISON: None. CLINICAL INDICATION: Male, 80 years old with history of R13.19 DYSPHAGIA; PHH, food getting caught a few episodes upper thoracic level. TECHNIQUE: A double contrast esophagram is performed utilizing air and barium. A total of 43 second s of fluoroscopic time was utilized during procedure and 82 images obtained. Total dose area product (DAP) in uGy*m?, mGy*cm? (or similar) n/p. COMPARISON: None FINDINGS: The esophagus shows normal motility and emptying into the stomach during upright drinking. There is some dysmotility with stasis and abnormal secondary and tertiary contractions during prone d rinking through a straw. A small to moderate-sized sliding-type hiatal hernia is seen towards end of study. No intraluminal mass or stricture of the esophagus is identified. No significant gastroesophag eal reflux was seen during real time performance of this study. IMPRESSION: No obstructing gallstone mass or significant stricture present to account for patient's s ymptoms. Advise direct visualization if symptoms persist and/or worsen. [facility], , 02/15/2025 3:34 PM
== END | disposition home or self-care (01) ==
LOC: RADFLMAIN 14:39
PROVIDERS: ATTEND Internal Medicine Gastroenterology
DX: R13.19 Other dysphagia (principal)
CPT/HCPCS: 74220

== ENCOUNTER 2025-03-29 05:54 | Day surgery (SDC) | payer MEDICARE ==
[~2025-03-29 05:54] MED LIST changes: -HYDROmorphone 0.5 MG/0.5 ML SYRINGE IVP PRN; +LIDOCAINE 1% (10MG/ML) FOR IV START INTRADERMA PRN; -MIDAZOLAM 2 MG/2 ML VIAL IV PRN; -Pre Op ABX Message 1 EACH MISC MISCELLANE ONE
[2025-03-29] MEDS: IV FLUID CONTINUATION 1,000 ML IV ONE (06:43)
[2025-03-29 07:16] VITALS: TEMP 97.7
[2025-03-29] MEDS ORDERED: PROPOFOL 10 MG/ML 20 ML VIAL IV ONE (07:20)
[2025-03-29] MEDS ORDERED: LIDOCAINE 1% INJ 10MG/ML (20 ML MDV) ONE (07:20)
--- NOTE | 2025-03-29 07:38 | P.PCN ---
Date of Procedure: 03/29/25 Procedure(s) Performed: BRIEF HISTORY: Patient is a 80-year-old, pleasant, white male scheduled for an upper Endoscopy as a part evaluation of intermittent dysphagia to solids and liquids for the last 6 months duration.. Last EGD with dilation was done in July 2024 that revealed a distal esophageal Schatzki's ring. PROCEDURE PERFORMED: Esophagogastroduodenoscopy with dilation. PREOPERATIVE DIAGNOSIS: Intermittent dysphagia to solids and liquids. IV sedation per anesthesia. PROCEDURE: After informed consent was obtained, the patient was brought into the endoscopy unit. IV sedation was administered by Anesthesia under continuous monitoring. Initially the Olympus GIF-140 video endoscope was inserted into the mouth. Esophagus intubated without any difficulty. It was gradually advanced into the stomach and duodenum and carefully examined. The bulb and the second part of the duodenum appeared normal. The scope at this time was withdrawn to the stomach, adequately insufflated with air, and upon careful examination, mucosa of the antrum, body, cardia and the fundus appeared normal. The scope was then withdrawn into the esophagus. Small hiatal hernia noted. The GE junction was located at 39 cm from the incisors. There was a distal esophageal Schatzki's ring identified and this was dilated initially with 15 and subsequently to 16.5 mm TTS balloon for 30 seconds. There was a mucosal tear with brisk oozing identified that spontaneously resolved. The rest of the esophagus appeared normal. There were no erosions or ulcerations seen. Proximal cervical esophagus was carefully examined and appeared normal and the patient tolerated the procedure well. IMPRESSION: 1. Distal esophageal Schatzki's ring status post balloon dilation using 15 and 16.5 mm TTS balloon. 2. Small hiatal hernia. 3. Proximal cervical esophagus appeared normal. RECOMMENDATIONS: The findings of this examination were discussed with the patient as well as his family. He was advised to follow-up with the biopsy results.. Clear liquids for 2 hours. Follow-up in the office in 6 weeks.
[2025-03-29 07:42] VITALS: RESP 16
[2025-03-29 08:01] VITALS: BP 140/84; PULSE 63
== END 2025-03-29 09:12 ==
LOC: ORWHC2ENDO 05:54
PROVIDERS: ATTEND Internal Medicine Gastroenterology
DX: K22.2 Esophageal obstruction (principal); K44.9 Diaphragmatic hernia without obstruction or gangrene; I25.10 Atherosclerotic heart disease of native coronary artery without angina pectoris; F41.9 Anxiety disorder, unspecified; Z91.040 Latex allergy status; Z79.899 Other long term (current) drug therapy
CPT/HCPCS: 43249; J2003; J2704; C1726